=== PATIENT | female | born 1975 | race Caucasian/White ===

== ENCOUNTER 2018-05-05 11:41 | Outpatient (CLI) | payer OTHER ==
--- NOTE | 2018-05-11 08:51 | MMO ---
BILATERAL SCREENING MAMMOGRAM: INDICATION: Annual exam. COMPARISON: Prior exam dated 08/24/2016. FINDINGS: The interpretation of this exam was assisted with computer-aided detection. The breast parenchyma is heterogeneously dense, which limits the sensitivity of mammography. No suspicious mass, cluster of microcalcifications, or area of architectural distortion is evident. IMPRESSION: BI-RADS category 1 - negative. Recommend routine annual mammographic screening. BIRADS 1: Negative Routine annual screening mammography (for women over age 40) POS: [facility]
== END 2018-05-05 11:42 | disposition home or self-care (01) ==
LOC: SCSMAMMO 11:41
PROVIDERS: ATTEND Family Medicine
DX: Z12.31 Encounter for screening mammogram for malignant neoplasm of breast (principal)
CPT/HCPCS: 77067